=== PATIENT | male | born 1950 | race Caucasian/White ===

== ENCOUNTER → 2016-06-04 | Outpatient (CLI) | payer MEDICARE, OTHER ==
[~2016-06-04] MED LIST: ACTOS PO; ACTOS30 MG PO; ADVAIR 250-501 EAC1 IH; ALLEGRA ALLERG180 MG PO; ALLEGRA PO; ALLEGRA180 MG PO; ANDROGEL2.5 GM TOP; ASPIRIN PO; ASPIRIN81 M1 PO; ASPIRIN81 M2 PO; BYDUREON2 MG SQ; CARAFATE1 GM PO; CYANOCOBAL1000 MCG/M INJ; FLONASE 0.05% N16 G1; FLONASE16 GM; FOLIC ACID1 MG PO; GABAPENTIN300 MG PO; GLEEVEC100 MG PO; GLUCOPHAGE850 MG PO; GLUCOTROL PO; HUMALOG100 U/ML; HUMALOG100 U/ML SQ; IMATINIB MESYL400 MG PO; IMATINIB MESYLATE; LANTUS SOLOSTAR3 ML SUBQ; LANTUS100 U/ML; LANTUS100 U/ML SQ; LANTUS100 UNITS/ SUBQ; LASIX20 MG PO; LEXAPRO PO; LISINOPRIL10 MG PO; LODINE400 M1 PO; LOPRESSOR PO; LOSARTAN POTASS50 MG PO; MEDI-MECLIZINE25 M1 PO; METFORMIN PO; MOTION RELIEF25 MG PO; NOVOLOG100 U/M2 SUBQ; OXYGEN; PANTOPRAZOLE SO40 MG PO; POTASSIUM CHLO10 ME1 PO; PRILOSEC PO; PROAIR HFA8.5 GM INH; RESTASIS32 EA OU; ROXICODONE5 MG PO; SIMVASTATIN20 MG PO; SINGULAIR PO; SPIRIVA18 MCG INH; STIOLTO RESPIMAT4 GM; TOPROL XL PO; TOPROL XL50 MG PO; TRICOR PO; TRICOR145 MG PO; VIT B 12 INJ; VITAMIN B12 SQ; VYTORIN 10-20 M1 TAB PO; VYTORIN 10/20 T1 TAB PO; ZOCOR20 MG PO; ZOLOFT100 MG PO; ZOLOFT50 MG PO; [UNRECOGNIZED DRUG - OTHER]
--- NOTE | ~2016-06-04 | TH ---
Unit #: [id number] #: [id number] Patient: ALEC GUY [id number] [address] [address] [id number] O MR#: [id number] NAME: ALEC GUY : 1950 SEX: M STUDY DATE/TIME: 06/04/2016 UNIT: [facility] ROOM: STUDY DESCRIPTION: Attending Physician: Yoli Mello M.D. Referring Physician: Yoli Mello M.D. Primary Care Physician: John Sepulveda Jr., M.D. CARDIOLOGY REPORT EXAM Lexiscan Cardiolite stress test, nuclear portion. PROCEDURE Using technetium 99m labeled Cardiolite, rest and stress SPECT images were obtained. Multiple SPECT images were obtained in various views including horizontal and vertical long axis and short axis views of the left ventricle. Images were obtained by gated SPECT method. The patient was administered 11.05 mCi of Cardiolite at rest. The patient was administered 32.1 mCi of Cardiolite after Lexiscan infusion was completed. On the stress images, there is normal perfusion noted. The rest images show normal perfusion. Comparing rest and stress images, there is no obvious stress-induced ischemia noted. The left ventricular cavity is moderately dilated both at rest and post stress. The left ventricular ejection fraction is calculated to be 60%. The technical quality of the images is extremely poor because of patient's body habitus. There also seems to be increased right ventricular uptake. CONCLUSION 1. No obvious stress-induced ischemia noted. 2. The left ventricular ejection fraction is calculated to be 60%. 3. There is no obvious wall motion abnormality seen. 4. The left ventricular cavity is moderately dilated both at rest and post stress. 5. There is increased right ventricular isotope uptake noted. 6. Technically extremely limited study due to patient's body habitus. Clinical correlation is requested. Dictated by... Mar Calloway TD: 06/04/2016 16:16 JOB #: [id number] Unit #: [id number] #: [id number] Patient: ALEC GUY CARDIOLOGY REPORT X Yoli Mello MD <ELECTRONICALLY SIGNED> 10/27/16 142 CARDIOLOGY REPORT
== END | disposition home or self-care (01) ==
LOC: CNUC 07:37
DX: R07.9 Chest pain, unspecified (principal); I25.10 Atherosclerotic heart disease of native coronary artery without angina pectoris; J90 Pleural effusion, not elsewhere classified; R94.8 Abnormal results of function studies of other organs and systems
CPT/HCPCS: 78452; 93017; A9500; J2785

== ENCOUNTER 2016-06-06 19:31 | Emergency (ER) | payer MEDICARE, OTHER ==
--- NOTE | ~2016-06-06 | EKG ---
PATIENT: ALEC GUY UNIT #: [id number] Ventricular Rate: 66 BPM Atrial Rate: 66 BPM P-R Interval: 172 ms QRS Duration: 90 ms Q-T Interval: 400 ms QTC Calculation(Bezet): 419 ms P [place]: 58 degrees Calculated R [place]: 41 degrees Calculated T [place]: 47 degrees Diagnosis Line: Normal sinus rhythm Diagnosis Line: Normal ECG Diagnosis Line: No previous ECGs available Diagnosis Line: Confirmed by JOSH DWYER MD ([id number]) on 06/07/2016 Diagnosis Line: 6:22:38 PM INTERPRETING MD: YULIYA BURKS
--- NOTE | ~2016-06-06 | CR72 ---
[facility] A Service of [facility] RADIOLOGY TEXT RESULTS PATIENT: ALEC GUY LOCATION: [facility] : [birth year] UNIT #: [id number] AGE: [address]: Hong Rivera MD SEX: M ORDER DR: [id number] [facility] [address] [facility]. [place], [place] [address] [id number] MR#: [id number] Acc #: [id number] NAME: ALEC GUY : 1950 SEX: M STUDY DATE/TIME: 06/06/2016 19:35 UNIT: [facility] ROOM: STUDY DESCRIPTION: CR Chest Single View Portable Attending Physician: Hong Rivera M.D. Ordering Physician: [facility] Primary Care Physician: John Sepulveda Jr., M.D. MEDICAL IMAGING REPORT This report is preliminary unless electronic signature is present EXAM AP portable chest 06/06/2016 HISTORY Left side chest pain, shortness breath since 05/27/2015. Left lung biopsy 05/17/2015. Colon cancer. COMPARISON PA and lateral chest 05/17/2016 at 15:46. CT chest 05/23/2016. FINDINGS Small left pleural effusion is not thought to be significantly changed. No basilar airspace disease is again noted, may be slightly increased. Right lung appears clear. Heart size is thought to be stable. No visible pneumothorax. IMPRESSION Slight interval increase in left basilar atelectasis or consolidation compared to 05/17/2016. A small left pleural effusion is thought to be stable. Dictated by... Brenda Kwon M.D. THIS IS AN ELECTRONICALLY VERIFIED REPORT Brenda Kwon M.D. at 06/07/2016 2:42 PM LLH/papa TD: 06/06/2016 23:42 JOB #: [id number] [facility] A Service of [facility] RADIOLOGY TEXT RESULTS PATIENT: ALEC GUY LOCATION: [facility] : [birth year] UNIT #: [id number] AGE: [address]: Hong Rivera MD SEX: M ORDER DR: MEDICAL IMAGING REPORT COPY
[2016-06-06 20:05] LABS: BASOPHIL# 0.1 X10e3 (0-0.3); BASOPHIL% 1.3 % (0-2.5); EOSINOPHIL# 0.4 X10e3 (0-0.7); EOSINOPHIL% 6.3 % (0.0-7.0); HEMATOCRIT 30.7 % (38.0-50.0); LYMPHOCYTE# 1.7 X10e3 (1.0-3.5); LYMPHOCYTE% 23.9 % (17.0-45.0); MEAN CELL VOLUME 91.8 FL (83-96); MEAN CORPUSCULAR HGB CONC 32.7 g/dL (30-36); MEAN PLATELET VOLUME 9.5 FL (6.5-11.5); MONOCYTE# 0.7 X10e3 (0-1.0); MONOCYTE% 10.2 % (3.0-12.0); NEUTROPHIL# 4.1 X10e3 (1.5-7.1); NEUTROPHIL% 58.3 % (40-75); PLATELET COUNT 221 X10e3 (140-420); RED BLOOD COUNT 3.34 X10e (3.90-5.60); RED CELL DISTRIBUTION WIDTH 15.6 % (11.0-15.5)
[2016-06-06 20:07] LABS: DIFF IND NO
[2016-06-06 20:24] LABS: POC - CKMB 1.3 ng/mL (0.0-7.9); POC - TROPONIN <0.05 ng/mL (<=0.05)
[2016-06-06 20:28] LABS: ALBUMIN SERUM 3.3 g/dL (3.5-5.0); BILIRUBIN, DIRECT 0.1 mg/dL (0.0-0.2); BILIRUBIN,INDIRECT 0.3 mg/dL (0.0-0.9); BILIRUBIN,TOTAL 0.4 mg/dL (0.2-2.0); CALCIUM SERUM 9.1 mg/dL (8.4-10.2); CREATININE SERUM 1.3 mg/dL (0.6-1.4); GLOM FILT RATE Estimated 58.7 mL/min (>60); POTASSIUM 4.5 mmol/L (3.5-5.1)
[2016-06-06 21:46] LABS: POC - CKMB <1.0 ng/mL (0.0-7.9); POC - TROPONIN <0.05 ng/mL (<=0.05)
== END 2016-06-06 22:32 | disposition home or self-care (01) ==
LOC: CED 19:31
PROVIDERS: Emergency Medicine
DX: R07.89 Other chest pain (principal); E11.9 Type 2 diabetes mellitus without complications; J44.9 Chronic obstructive pulmonary disease, unspecified; I25.10 Atherosclerotic heart disease of native coronary artery without angina pectoris; I10 Essential (primary) hypertension; Z88.2 Allergy status to sulfonamides; Z88.5 Allergy status to narcotic agent
CPT/HCPCS: 36415; 71010; 80048; 80076; 82553; 82947; 84484; 85025; 93005; 99283

== ENCOUNTER → 2016-06-12 | Outpatient (CLI) | payer MEDICARE, OTHER ==
--- NOTE | ~2016-06-12 | CT55 ---
[facility] A Service of [facility] RADIOLOGY TEXT RESULTS PATIENT: ALEC GUY LOCATION: [facility] : [birth year] UNIT #: [id number] AGE: [address]: Marquez Warner MD SEX: M ORDER DR: [id number] [facility] [address] [facility]. [place], [place] [address] [id number] O MR#: [id number] Acc #: [id number] NAME: ALEC GUY : 1950 SEX: M STUDY DATE/TIME: 06/12/2016 10:16 UNIT: [facility] ROOM: STUDY DESCRIPTION: CT Chest W Con Attending Physician: Marquez Warner M.D. Referring Physician: Marquez Warner M.D. Ordering Physician: Marquez Warner M.D. Primary Care Physician: John Sepulveda Jr., M.D. 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 Observation for metastatic disease. PROCEDURE Contrast-enhanced CT of the chest. 100 mL of Isovue-370. COMPARISON 05/23/[address] exam was performed with one or more of the following radiation dose reduction techniques: automatic exposure control, adjustment of mA and/or kV according to patient size, and iterative reconstruction. FINDINGS Centrilobular emphysema. Stable opacity with volume loss in the left lung base. No new dense consolidation or pulmonary nodule. There is a trace left pleural effusion that is unchanged from the previous study. No adenopathy. No aggressive appearing bone lesion. IMPRESSION 1. No significant change from 05/23/2016. There is persistent opacity in the left lower lobe with volume loss and a trace left pleural effusion. 2. Mild background emphysema. Dictated by... Chris Osuna M.D. [facility] A Service of [facility] RADIOLOGY TEXT RESULTS PATIENT: ALEC GUY LOCATION: [facility] : [birth year] UNIT #: [id number] AGE: [address]: Marquez Warner MD SEX: M ORDER DR: THIS IS AN ELECTRONICALLY VERIFIED REPORT Chris Osuna M.D. at 06/13/2016 7:53 AM Diane TD: 06/12/2016 14:38 JOB #: [id number] MEDICAL IMAGING REPORT COPY
== END | disposition home or self-care (01) ==
LOC: CCAT 09:53
DX: J90 Pleural effusion, not elsewhere classified (principal); J43.9 Emphysema, unspecified; R91.8 Other nonspecific abnormal finding of lung field
CPT/HCPCS: 71260; 74177; Q9967

== ENCOUNTER → 2016-08-14 | Outpatient (CLI) | payer MEDICARE, OTHER ==
--- NOTE | ~2016-08-14 | CR63 ---
[facility] A Service of [facility] RADIOLOGY TEXT RESULTS PATIENT: ALEC GUY LOCATION: [facility] : [birth year] UNIT #: [id number] AGE: [address]: Marquez Warner MD SEX: M ORDER DR: [id number] [facility] [address] [facility]. [place], [place] [address] [id number] O MR#: [id number] Acc #: [id number] NAME: ALEC GUY : 1950 SEX: M STUDY DATE/TIME: 08/14/2016 12:51 UNIT: [facility] ROOM: STUDY DESCRIPTION: CR Chest 2 View Attending Physician: Marquez Warner M.D. Referring Physician: Marquez Warner M.D. Ordering Physician: Marquez Warner M.D. Primary Care Physician: John Sepulveda Jr., M.D. MEDICAL IMAGING REPORT This report is preliminary unless electronic signature is present EXAM PA and lateral chest. INDICATION Evaluate pleural effusion. COMPARISON Compared to 06/06/2016. FINDINGS This PA and lateral view of the chest shows the right lung is clear. There is blunting of the left costophrenic angle unchanged from 06/06/2016. There is no significant atelectasis. The heart size is normal, and the bones are normal. IMPRESSION Chronic left costophrenic angle blunting, suggesting chronic effusion. No change from june 2016. Otherwise, no active disease. Dictated by... Moreno Phipps M.D. THIS IS AN ELECTRONICALLY VERIFIED REPORT Moreno Phipps M.D. at 08/15/2016 7:15 AM LORE/tori TD: 08/14/2016 17:36 JOB #: [id number] MEDICAL IMAGING REPORT [facility] A Service [facility] RADIOLOGY TEXT RESULTS PATIENT: ALEC GUY LOCATION: [facility] : [birth year] UNIT #: [id number] AGE: [address]: Marquez Warner MD SEX: M ORDER DR: Page 1 of 1 COPY
== END | disposition home or self-care (01) ==
LOC: CRAD 12:23
DX: J90 Pleural effusion, not elsewhere classified (principal)
CPT/HCPCS: 71020

== ENCOUNTER → 2016-10-30 | Outpatient (CLI) | payer MEDICARE, OTHER ==
--- NOTE | ~2016-10-30 | US13 ---
[facility] A Service of [facility] RADIOLOGY TEXT RESULTS PATIENT: ALEC GUY LOCATION: [facility] : [birth year] UNIT #: [id number] AGE: [address]: John Sepulveda MD SEX: M ORDER DR: [id number] [address] [address] [id number] O MR#: [id number] Acc #: [id number] NAME: ALEC GUY : 1950 SEX: M STUDY DATE/TIME: 10/30/2016 9:15 UNIT: [facility] ROOM: STUDY DESCRIPTION: US Aorta Limited Attending Physician: John Sepulveda Jr., M.D. Referring Physician: John Sepulveda Jr., M.D. Ordering Physician: John Sepulveda Jr., M.D. Primary Care Physician: John Sepulveda Jr., M.D. MEDICAL IMAGING REPORT This report is preliminary unless electronic signature is present. EXAM Abdominal aortic ultrasound HISTORY Previous tobacco abuse. Hypertension. Hyperlipidemia. FINDINGS B-mode imaging and color Doppler imaging of the infrarenal aorta was performed that show the visualized segments to be widely patent without evidence of stenosis. Image quality was poor due to overlying bowel gas. Mid-aortic velocity is 97 cm/sec. The proximal infrarenal aorta is 2.3 cm, mid-aorta 2.6 cm, and distal aorta 1.6 cm. IMPRESSION No evidence of infrarenal abdominal aortic aneurysm or aortic stenosis. Dictated by... Rell Jeffrey M.D. THIS IS AN ELECTRONICALLY VERIFIED REPORT Rell Jeffrey M.D. at 10/31/2016 10:33 AM SAMUEL/papa TD: 10/30/2016 18:52 JOB #: [id number] MEDICAL IMAGING REPORT Page 1 of 1
== END | disposition home or self-care (01) ==
LOC: SGUS 09:03
DX: Z13.6 Encounter for screening for cardiovascular disorders (principal)
CPT/HCPCS: 76775

== ENCOUNTER → 2016-11-19 | Outpatient (CLI) | payer MEDICARE, OTHER ==
--- NOTE | ~2016-11-19 | CR63 ---
[facility] A Service of [facility] RADIOLOGY TEXT RESULTS PATIENT: ALEC GUY LOCATION: [facility] : [birth year] UNIT #: [id number] AGE: [address]: Kari Bravo APRN SEX: M ORDER DR: [id number] [facility] [address]. [place], [place] [address] [id number] O MR#: [id number] Acc #: [id number] NAME: ALEC GUY : 1950 SEX: M STUDY DATE/TIME: 11/19/2016 10:29 UNIT: [facility] ROOM: STUDY DESCRIPTION: CR Chest 2 View Attending Physician: Kari Bravo A.P.R.N. Referring Physician: Kari Bravo A.P.R.N. Ordering Physician: Kari Bravo A.P.R.N. Primary Care Physician: John Sepulveda Jr., M.D. MEDICAL IMAGING REPORT This report is preliminary unless electronic signature is present EXAM Two view chest 11/19/2016. FINDINGS A 66-year-old male patient with history of left pleural effusion. Previous left chest biopsy April 2016. Symptoms began 2016. History of COPD and high blood pressure COMPARISON STUDIES Chest, May, June and August 2016 FINDINGS Two-view chest demonstrates borderline stable cardiac enlargement. Left pleural effusion is present. It is stable to slightly smaller. Moderate atelectasis continues in the left lower lobe. Coexisting infiltrate cannot be excluded. Faintly visible gastric band. Right lung is expanded and clear. IMPRESSION Continuing left pleural effusion probably slightly smaller with atelectasis and possible infiltrate left lower lobe. Borderline stable cardiac enlargement. Dictated by... Nitin Griffin M.D. THIS IS AN ELECTRONICALLY VERIFIED REPORT Nitin Griffin M.D. at 11/20/2016 8:13 AM Stephani TD: 11/19/2016 19:01 JOB #: [id number] [facility] A Service of [facility] RADIOLOGY TEXT RESULTS PATIENT: ALEC GUY LOCATION: [facility] : [birth year] UNIT #: [id number] AGE: [address]: Kari Bravo APRN SEX: M ORDER DR: MEDICAL IMAGING REPORT Page 1 of 1 COPY
== END | disposition home or self-care (01) ==
LOC: CRAD 10:17
DX: J90 Pleural effusion, not elsewhere classified (principal); J98.11 Atelectasis; I51.7 Cardiomegaly
CPT/HCPCS: 71020